=== PATIENT | female | born 1980 | race Caucasian/White ===

== ENCOUNTER → 2018-06-09 | Outpatient (CLI) | payer BC ==
[~2018-06-09] MED LIST: ASPI-870 CHEW; ATOR10TA24 PO
--- NOTE | 2018-06-09 16:20 | RADIOLOGY IMAGING REPORT ---
FACILITY: [facility] - [place] PATIENT NAME: Queta Pizarro : 1980 MR: [id number] V: [id number] EXAM DATE: ORDERING PHYSICIAN: JESSICA BRIONES TECHNOLOGIST: Location: [facility] [place] Patient: Queta Pizarro : 1980 Visit/Account:[id number] Date of Sevice: 06/09/2018 Exam type: CHEST PA LAT History: Cough wheezing and rales, history of varicose vein surgery April 2018 Comparison: April 15, 2017. Findings: There is a subtle increased bronchovascular markings in the right lung base when compared to the prio r study. There is no evidence of pleural effusions or overt pulmonary edema. The cardiac silhouette is normal in size. Suggest dextroconvex scoliosis of the thoracic spine. IMPRESSION: 1. Subtle increased bronchovascular markings the right lung base which may represent mild developing infiltrate and/or atelectasis Report Dictated By: Tangela Wilhelm MD at 06/09/2018 4:01 PM Report E-Signed By: Tangela Wilhelm MD at 06/09/2018 4:15 PM WSN:[id number]
== END ==
LOC: RAD 14:30
PROVIDERS: ATTEND Physician Assistant
DX: R91.8 Other nonspecific abnormal finding of lung field (principal); M41.84 Other forms of scoliosis, thoracic region
CPT/HCPCS: 71046

== ENCOUNTER → 2018-08-16 | Outpatient (CLI) | payer BC ==
[~2018-08-16] MED LIST changes: +LISI20TA29 PO
--- NOTE | 2018-08-16 13:17 | EKG ---
FACILITY: [facility] - [place] PATIENT NAME: NEGRA CAAL : [id number] MR: [id number] V: [id number] EXAM DATE: ORDERING PHYSICIAN: EB ALVAREZ TECHNOLOGIST: EMILIANA Test Reason : HTN Blood Pressure : / mmHG Vent. Rate : 091 BPM Atrial Rate : 091 BPM P-R Int : 124 ms QRS Dur : 104 ms QT Int : 354 ms P-R-T Axes : 058 077 041 degrees QTc Int : 435 ms Sinus rhythm Q waves inferolateral leads Nonspecific ST findings No previous ECGs available Confirmed by MINNIE WHITLEY ([id number]) on 08/16/2018 4:53:40 PM Referred By: ANTONIO Confirmed By:MINNIE WHITLEY
== END ==
LOC: RESP 13:04
PROVIDERS: ATTEND Obstetrics & Gynecology
DX: Z01.810 Encounter for preprocedural cardiovascular examination (principal); I10 Essential (primary) hypertension
CPT/HCPCS: 93005

== ENCOUNTER 2018-08-20 02:02 | Day surgery (SDC) | payer BC ==
[~2018-08-20] VITALS: Ht 165.1 cm; Wt 121.1 kg
[2018-08-20 09:50] VITALS: BP 109/75
[2018-08-20 10:16] LABS: PLATELET COUNT, AUTOMATED 209 K/uL (150-450)
[2018-08-20] MEDS ORDERED: FAMOTIDINE 20 MG TAB PO ONE (10:30)
[2018-08-20] MEDS ORDERED: LIDOCAINE/SOD BICARB 8.4% SYR ID ONE (10:30)
[2018-08-20] MEDS ORDERED: NORMOSOL R SOLN(*) 1000 ML BAG 1,000 ML IV PRN (10:30)
[2018-08-20] MEDS ORDERED: MIDAZOLAM 2 MG/2 ML VIAL IVP PRN (10:30)
[2018-08-20] MEDS ORDERED: METHYLERGONOVINE MAL 0.2MG/ML ONE (11:26)
[2018-08-20] MEDS ORDERED: LIDOCAINE 2% IV 100 MG/5ML SYR ONE (11:46)
[2018-08-20] MEDS ORDERED: PROPOFOL EMUL(*) 10MG/ML 20 ML 20 ML ONE (11:46)
[2018-08-20] MEDS ORDERED: fentaNYL CITR 100 MCG/2 ML AMP ONE ×2 (11:46→12:30)
[2018-08-20] MEDS ORDERED: KETOROLAC 30 MG/ML VIAL ONE (12:13)
[2018-08-20] MEDS ORDERED: ONDANSETRON 4 MG/2 ML VIAL ONE (12:13)
[2018-08-20] MEDS ORDERED: DEXAMETHASONE SOD 4 MG/ML VIAL ONE (12:13)
[2018-08-20] MEDS ORDERED: MANNITOL IVPB ONE (12:45)
[2018-08-20] MEDS ORDERED: LR(*) 1000 ML BAG 1,000 ML IV ONE (13:14)
--- NOTE | 2018-08-20 13:14 | Post Operative Note ---
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
[2018-08-20 13:45] VITALS: BP 116/89
[2018-08-20] MEDS ORDERED: ACETAMINOPHEN 500 MG TAB PO ONE ×2 (14:05→14:15)
[2018-08-20 14:15] VITALS: BP 116/90
--- NOTE | 2018-08-20 14:35 | OPERATIVE REPORT 1 ---
EVENT DATE: August 20, 2018 SURGEON: Yash Lewis MD ANESTHESIOLOGIST: Jigar Duarte MD ANESTHESIA: General LMA. PREOPERATIVE DIAGNOSES 1. Cervical polyp. 2. Postcoital bleeding. 3. Excessive and frequent menstruation with an irregular cycle. POSTOPERATIVE DIAGNOSES 1. Cervical polyp. 2. Postcoital bleeding. 3. Excessive and frequent menstruation with an irregular cycle. PROCEDURE PERFORMED 1. Hysteroscopic polypectomy using the MyoSure device. 2. Dilatation and curettage. ESTIMATED BLOOD LOSS 20 mL. FLUIDS Crystalloid 900 mL IV. FINDINGS Protruding from the cervix into the vagina and into the vaginal introitus was a large, deformed cervical polyp. It appeared to be emanating from the cervical os and from within. Inspecting the cervical canal with the hysteroscope, it did appear to emanate from the endocervix. There was no visible stalk extending into the endometrium. There was a lush and proliferative-type endometrium within the endometrial cavity. Normal-appearing cavity architecture with normal-appearing tubal ostia bilaterally. PROCEDURE IN DETAIL The patient was moved to the operating room with a working IV, placed in the dorsal supine position, and placed under general LMA anesthesia. She was then moved to the dorsal lithotomy position and prepped and draped in the usual sterile fashion. A weighted speculum was placed in the vagina, and this large polyp emanating from the cervix was grasped with a ring forceps. It was amputated at the cervical os and sent to Pathology. The MyoSure hysteroscope was then assembled. The cervix was dilated to accommodate, and it was passed through the cervix into the uterus with saline as insufflation. The cavity was inspected with the above findings noted. The polyp appeared to be emanating from the endocervix as the remaining stalk was visible while withdrawing the scope. Therefore, the MyoSure device was connected, and using the MyoSure through the hysteroscope, the stalk was morcellated out flush with the endocervix. The MyoSure device was further used to remove the endometrium from within the endometrial cavity as some of this did have a polypoid appearance; therefore, it was included in the sample. Once this had been adequately curettaged throughout the endometrial cavity, the MyoSure device was removed, and a manual curettage was performed with a sharp bovine curette. The specimen was sent including the MyoSure specimen to Pathology for analysis. Upon completion, the remaining distal cervix where the stalk was emanating was treated with silver nitrate, and there was a scant amount of bleeding upon completion. Therefore, the patient was cleaned up and returned to the dorsal supine position, awakened from general anesthesia in stable condition, and taken to Recovery. Fluid used during the hysteroscope was 2700 mL with a 570 mL fluid deficit. No complications. She tolerated the procedure well. AGUSTIN
[2018-08-20 14:45] VITALS: BP 115/89
[2018-08-20 15:15] VITALS: BP 128/91
[2018-08-20 15:17] VITALS: BP 128/93
== END 2018-08-20 13:45 | disposition home or self-care (01) ==
LOC: OR 02:02
PROVIDERS: ATTEND Obstetrics & Gynecology
DX: N93.0 Postcoital and contact bleeding (principal); N92.1 Excessive and frequent menstruation with irregular cycle
CPT/HCPCS: 58558; 84703; 85025; 88305; J1100; J1885; J2001; J2210; J2405; J2704; J3010